=== PATIENT | female | born 1955 | race Caucasian/White ===

== ENCOUNTER → 2016-12-26 | Outpatient (CLI) | payer OTHER ==
[~2016-12-26] MED LIST: ATIVAN 0.50.5 MG/TAB PO; CALCIUM 600 PLU1 TAB PO; CIPRO 500MG TA500 MG PO; MAGNESIUM500 MG PO; MIRALAX PA17 GM/Dose PO; PREMARIN .3MG0.3 MG PO; PROBIOTIC-MAJOR PO; PYRIDIUM200 M1 PO; RESTASIS 60VL; SERZONE 10100 MG/TAB PO
== END ==
LOC: COL.RAD 08:00
DX: R31.29 Other microscopic hematuria (principal)
CPT/HCPCS: Q9967

== ENCOUNTER 2017-02-04 19:35 | Emergency (ER) | payer OTHER ==
[~2017-02-04] VITALS: Ht 160 cm; Wt 94.1 kg
[2017-02-04 19:40] VITALS: TEMP 98.9
[2017-02-04 20:06] LABS: COLLECTION METHOD CLEAN CATCH
[2017-02-04 20:22] LABS: MUCOUS Present /lpf; PH 5 (5-8); SQUAMOUS EPITHELIAL 0-2 /hpf; URINE APPEARANCE Hazy; URINE BACTERIA None Seen /hpf; URINE BILIRUBIN Negative (NEGATIVE); URINE BLOOD 2+ (NEGATIVE); URINE GLUCOSE Negative (NEGATIVE); URINE KETONE Negative (NEGATIVE); URINE LEUKOCYTE ESTERASE 2+ (NEGATIVE); URINE PROTEIN(semi-quant) 1+ (NEGATIVE); URINE RBC 20-50 /hpf; URINE UROBILINOGEN >=4.0 mg/dL (NEGATIVE)
[2017-02-04 20:23] LABS: URINE COLOR Amber; URINE WBC >50 /hpf
[2017-02-04] MEDS ORDERED: CIPRO 500MG TA500 MG PO (20:38)
[2017-02-04 20:53] VITALS: BP 159/73; PULSE 70
== END 2017-02-04 20:53 | disposition home or self-care (01) ==
LOC: COL.ER 19:35
PROVIDERS: Emergency Medicine
DX: N39.0 Urinary tract infection, site not specified (principal); I10 Essential (primary) hypertension; Z90.710 Acquired absence of both cervix and uterus

== ENCOUNTER → 2017-05-11 | Outpatient (CLI) | payer OTHER | LOC: MC.RAD 04-20 08:20 | DX: Z12.31 Encounter for screening mammogram for malignant neoplasm of breast (principal); N63.21 Unspecified lump in the left breast, upper outer quadrant ==

== ENCOUNTER → 2017-06-01 | Outpatient (CLI) | payer OTHER | LOC: MC.RAD 05-31 14:30 | DX: N63.20 Unspecified lump in the left breast, unspecified quadrant (principal); N64.89 Other specified disorders of breast ==

== ENCOUNTER → 2017-12-07 | Outpatient (CLI) | payer OTHER | LOC: MC.RAD 12:57 | DX: N63.21 Unspecified lump in the left breast, upper outer quadrant (principal) | CPT/HCPCS: G0279 ==

== ENCOUNTER → 2018-05-10 | Outpatient (CLI) | payer MEDICARE, OTHER | LOC: MC.RAD 08:52 | DX: N63.20 Unspecified lump in the left breast, unspecified quadrant (principal) | CPT/HCPCS: G0279 ==

== ENCOUNTER 2020-11-30 15:15 | Emergency (ER) | payer MEDICARE, OTHER ==
[~2020-11-30] VITALS: Ht 160 cm; Wt 93.2 kg
[~2020-11-30 15:15] MED LIST changes: +ASPI325T6 PO; +CELEBREX 1100 MG/CAP PO; +CLARITIN 1010 MG/TAB PO; +NORCO 325 MG-7.1 TAB PO; +ONE-A-DAY ESSE1 EACH PO; +PEPCID 20MG TAB20 MG PO; +ROXICODONE 55 MG/TAB PO; +SENOKOT S 50 MG1 TAB PO; +TOPROL XL 25MG25 MG PO
[2020-11-30 15:38] VITALS: TEMP 98.3
[2020-11-30] MEDS ORDERED: AMOXICILLIN 8751 TAB PO (16:19)
[2020-11-30 16:56] VITALS: BP 204/89; PULSE 60
== END 2020-11-30 16:58 | disposition home or self-care (01) ==
LOC: COL.ER 15:15
DX: S81.852A Open bite, left lower leg, initial encounter (principal); I10 Essential (primary) hypertension; Z23 Encounter for immunization; Z79.899 Other long term (current) drug therapy; W54.0XXA Bitten by dog, initial encounter; Y92.009 Unspecified place in unspecified non-institutional (private) residence as the place of occurrence of the external cause

== ENCOUNTER → 2020-12-11 | Outpatient (CLI) | payer MEDICARE, OTHER ==
[~2020-12-11] MED LIST changes: +AMOXICILLIN 8751 TAB PO
[2020-12-11 06:04] VITALS: BP 200/117; PULSE 63; TEMP 98.2
== END ==
LOC: COL.ER 05:47
DX: Z48.02 Encounter for removal of sutures (principal)

== ENCOUNTER 2023-03-26 01:36 | Emergency (ER) | payer MEDICARE, OTHER ==
[~2023-03-26] VITALS: Ht 160 cm; Wt 100.0 kg
[2023-03-26 01:40] VITALS: TEMP 97
[2023-03-26 01:56] LABS: BASO % 0.7 % (0.0-2.0); EOS # 0.2 K/mm3 (0.0-0.7); EOS % 3.2 % (0.0-4.0); GRAN # 3.2 K/mm3 (1.4-6.5); HEMATOCRIT 40.2 % (37.0-47.0); HEMOGLOBIN 13.3 g/dl (12.5-16.0); LYMPH # 1.9 K/mm3 (1.2-3.4); MEAN CELL VOLUME 89 fl (80.0-100.0); MEAN CORPUSCULAR HEMOGLOBIN 29 pg (27-31); MEAN CORPUSCULAR HGB CONC 33 g/dl (33.0-37.0); MEAN PLATELET VOLUME 8.9 fl (7.4-10.4); MONO # 0.5 K/mm3 (0.1-0.6); MONO % 9.1 % (1.7-9.3); PLATELET COUNT 196 K/mm3 (130-400); RED BLOOD COUNT 4.52 M/mm3 (4.10-5.30); REDCELL DISTRIBUTION WIDTH-CV 13.5 % (11.5-14.5)
[2023-03-26 02:13] LABS: ALBUMIN 3.5 gm/dL (3.4-4.8); BILIRUBIN,TOTAL 0.4 mg/dL (0.2-1.2); C-REACTIVE PROTEIN 3.59 mg/dL (0.00-0.50); CALCIUM 9.7 mg/dL (8.4-10.2); CREATININE, serum 0.97 mg/dL (0.57-1.11); POTASSIUM 3.5 mmol/L (3.5-4.5)
[2023-03-26] MEDS ORDERED: ZOFRAN ODT4 MG PO (03:22)
[2023-03-26] MEDS ORDERED: ANTIVERT 25MG25 MG PO (03:22)
[2023-03-26 05:58] VITALS: BP 147/67; PULSE 68
== END 2023-03-26 05:58 | disposition home or self-care (01) ==
LOC: COL.ER 01:36
PROVIDERS: Emergency Medicine
DX: I10 Essential (primary) hypertension (principal); R73.9 Hyperglycemia, unspecified
CPT/HCPCS: J0360; J0780; J7030

== ENCOUNTER → 2023-05-22 | Outpatient (CLI) | payer MEDICARE, OTHER ==
[~2023-05-22] MED LIST changes: +ANTIVERT 25MG25 MG PO; +ZOFRAN ODT4 MG PO
== END ==
LOC: COL.RAD 07:17
DX: K22.4 Dyskinesia of esophagus (principal)